=== PATIENT | female | born 1985 | race Caucasian/White ===

== ENCOUNTER 2017-03-12 02:08 | Emergency (ER) | payer BC ==
[~2017-03-12] VITALS: Ht 154.9 cm; Wt 50.0 kg
[~2017-03-12 02:08] MED LIST: MINO50TA PO; PRED20 PO; [UNRECOGNIZED DRUG - OTHER]
[2017-03-12 02:11] VITALS: BP 158/91; PULSE 111; TEMP 98.2; O2SAT 98
[2017-03-12] MEDS ORDERED: SODIUM CHLORIDE 0.9% FLUSH 10 ML FLUSH IV FLUSH PRN (02:45)
[2017-03-12] MEDS ORDERED: EPINEPHrine HCL (1:1000) 1 MG/ML VIAL IM ONE (02:45)
[2017-03-12] MEDS ORDERED: predniSONE 20 MG TAB PO ONE (02:45)
[2017-03-12] MEDS ORDERED: FAMOTIDINE 20 MG TAB PO ONE (02:45)
[2017-03-12] MEDS ORDERED: ZANT150T2 PO (02:54)
[2017-03-12] MEDS ORDERED: PRED50 PO (02:54)
[2017-03-12] MEDS ORDERED: DIPH25CA PO (02:54)
--- NOTE | 2017-03-12 02:57 | PD ---
HPI Chief Complaint: Allergic/Adverse Reaction Time Seen by Provider: 02:29 Travel History International Travel<30 days: No Contact w/Intl Traveler<30days: No Traveled to known affect area: No History of Present Illness HPI The patient is a 31-year-old female that complains of itching and swelling various parts of her body over the legs and arms and back and abdomen after she took some Bactrim DS for a "spider bite". She started the Bactrim DS on the and last night the symptoms began. He denies any wheezing or shortness of breath. She denies any nausea, vomiting or diarrhea. She denies any fever. The rash Is effervescent and moves from one spot to another. PFSH Past Medical History Diminished Hearing: No ?: Not LMP: 02-15-17 Social History Alcohol Use: Yes (SOC) Tobacco Use: Yes (02/09 PPD) Substance Use: No Allergies-Medications (Allergen,Severity, Reaction): Coded Allergies: Sulfa (Sulfonamide Antibiotics) (Verified Allergy, Intermediate, HIVES, 03/12/17) Reported Meds & Prescriptions Reported Meds & Active Scripts Active Reported Sulfamethoxazole-Trimethoprim 800-160 Mg Tab 1 Tab PO BID Review of Systems Except as stated in HPI: all other systems reviewed are Neg Physical Exam Narrative GENERAL: The patient is alert, oriented 3 in moderate apparent distress with her pruritic skin rash. Her vital signs show heart rate of 111 and blood pressure 158/91 but are otherwise normal. SKIN: Focused skin assessment warm/dry. There is an erythematous rash which is mostly macular over both arms and both eyes and on the back. On the medial 5 region there is not only macular erythematous rash but an urticarial rash. The "spider bite" is on the left anterior lower leg and it is healing well and there is virtually no sign of infection there. This was likely an MRSA infection. There is no necrotic tissue or red streak present. HEAD: Atraumatic. Normocephalic. EYES: Pupils equal and round. No scleral icterus. No injection or drainage. ENT: No nasal bleeding or discharge. Mucous membranes pink and moist. NECK: Trachea midline. No JVD. CARDIOVASCULAR: Regular rate and rhythm. No murmur appreciated. RESPIRATORY: No accessory muscle use. Clear to auscultation. Breath sounds equal bilaterally. GASTROINTESTINAL: Abdomen soft, non-tender, nondistended. Hepatic and splenic margins not palpable. MUSCULOSKELETAL: No obvious deformities. No clubbing. No cyanosis. No edema. NEUROLOGICAL: Awake and alert. No obvious cranial nerve deficits. Motor grossly within normal limits. Normal speech. PSYCHIATRIC: Appropriate mood and affect; insight and judgment normal. Data Data Last Documented VS Vital Signs Date Time Temp Pulse Resp B/P (MAP) Pulse Ox O2 Delivery O2 Flow Rate FiO2 03/12/17 03:18 89 148/81 03/12/17 03:16 16 98 Room Air 03/12/17 02:11 98.2 Orders Orders Ecg Monitoring (03/12/17 02:40) Oximetry (03/12/17 02:40) Prednisone (Deltasone) (03/12/17 02:45) Sodium Chloride 0.9% Flush (Ns Flush) (03/12/17 02:45) Epinephrine (1:1000) Inj (Adrenalin (1:1 (03/12/17 02:45) Famotidine (Pepcid) (03/12/17 02:45) MDM Medical Decision Making Medical Screen Exam Complete: Yes Emergency Medical Condition: Yes Medical Record Reviewed: Yes Differential Diagnosis Allergic rash, cellulitis, contact dermatitis Narrative Course The patient appears to have an allergic rash. This is likely an allergy to sulfa drugs. We will give the patient Bactroban in its place and she will discontinue the sulfa drug. She is given prednisone on an 8 day tapered course , Zantac and Benadryl. Diagnosis Primary Impression: Allergic reaction caused by a drug Additional Instructions: Discontinue the sulfa drug. We will give you a prescription for an antibiotic ointment. Med/Other Pt SpecificInfo: Prescription(s) given Scripts Mupirocin Topical (Bactroban Topical) 22 Gm Cream 1 APPLIC TOPICAL BID for Mgmt Bacterial Infection, #1 TUBE 0 Refills Prov: Clifford Forman MD 03/12/17 Disposition: 01 DISCHARGE HOME Condition: Stable Clifford Forman MD Mar 12, 2017 02:57
[2017-03-12 03:10] VITALS: BP 148/81; PULSE 94; RESP 18; O2SAT 97
[2017-03-12 03:16] VITALS: RESP 16; O2SAT 98
[2017-03-12] MEDS ORDERED: SULF1TAB23 PO (03:35)
[2017-03-12] MEDS ORDERED: MUPI2%T TOPICAL (03:54)
[2017-03-12] MEDS ORDERED: MUPIROCIN 2% OINT 22 GM TUBE TOPICAL ONE (04:00)
[2017-03-12 04:12] VITALS: BP 140/89; PULSE 86; RESP 16; O2SAT 98
== END 2017-03-12 04:19 | disposition home or self-care (01) ==
LOC: PHED 02:08
DX: T37.0X5A Adverse effect of sulfonamides, initial encounter (principal); R21 Rash and other nonspecific skin eruption; F17.200 Nicotine dependence, unspecified, uncomplicated; Z88.2 Allergy status to sulfonamides
CPT/HCPCS: 96372; 99283; J0171; J7512